=== PATIENT | male | born 1985 ===

== ENCOUNTER 2016-09-07 20:59 | Emergency (ER) | payer SELFPAY ==
[2016-09-07 21:08] VITALS: BP 112/59; PULSE 70; RESP 16; TEMP 102; O2SAT 99
--- NOTE | 2016-09-07 22:19 | ED PDOC ---
HPI: General Adult Time Seen by Provider: 09/07/16 21:11 Chief Complaint (Nursing): Cough, Cold, Congestion Chief Complaint (Provider): uri sx History Per: Patient Additional Complaint(s): pt c/o fever, cough, congestion, st x 2 days. no cp, sob, abd pain, n/v/d. no recent travel or sick contacts. Past Medical History Reviewed: Historical Data, Nursing Documentation, Vital Signs Vital Signs: Last Vital Signs Temp 102.0 F H 09/07/16 21:05 Pulse 70 09/07/16 21:05 Resp 16 09/07/16 21:05 BP 112/59 L 09/07/16 21:05 Pulse Ox 99 09/07/16 21:05 - Medical History PMH: No Chronic Diseases - Family History Family History: States: No Known Family Hx - Social History Current smoker - smoking cessation education provided: Yes Alcohol: None Drugs: Denies - Immunization History Hx Tetanus Toxoid Vaccination: Yes (>10years ago) - Home Medications Home Medications: Ambulatory Orders Medication Instructions Recorded D-Methorphan/PE/Acetaminophen 1 tab PO PRN PRN 09/07/16 [Vicks Dayquil Liquicaps] - Allergies Allergies/Adverse Reactions: Allergies Allergy/AdvReac Type Severity Reaction Status Date / Time No Known Allergies Allergy Verified 10/22/15 22:20 Review of Systems ROS Statement: Except As Marked, All Systems Reviewed And Found Negative Constitutional: Positive for: Fever, Chills ENT: Positive for: Nose Congestion, Throat Pain Respiratory: Positive for: Cough Physical Exam - Reviewed Nursing Documentation Reviewed: Yes Vital Signs Reviewed: Yes - Physical Exam Appears: Positive for: Non-toxic, Uncomfortable Skin: Positive for: Normal Color, Warm, DRY ENT: Positive for: Normal ENT Inspection Neck: Positive for: Normal, Painless ROM Cardiovascular/Chest: Positive for: Regular Rate, Rhythm Respiratory: Positive for: CNT, Normal Breath Sounds Gastrointestinal/Abdominal: Positive for: Normal Exam, Bowel Sounds, Soft. Negative for: Tenderness Neurologic/Psych: Positive for: Alert, Oriented - ECG O2 Sat by Pulse Oximetry: 99 Disposition - Clinical Impression Clinical Impression: URI (upper respiratory infection) - Patient ED Disposition Is Patient to be Admitted: No - Disposition Referrals: [facility] [Outside] Disposition: Routine/Home Disposition Time: 22:18 Condition: GOOD Instructions: Upper Respiratory Infection (ED)
== END 2016-09-07 22:33 | disposition home or self-care (01) ==
LOC: H.ER 20:59
DX: J06.9 Acute upper respiratory infection, unspecified (principal)

== ENCOUNTER 2017-03-07 02:32 | Emergency (ER) | payer MEDICAID ==
[2017-03-07 02:40] VITALS: BP 131/72; PULSE 54; RESP 16; TEMP 98.3; O2SAT 100
--- NOTE | 2017-03-07 02:55 | ED PDOC ---
HPI: Dental Pain/Injury Chief Complaint (Nursing): Dental Pain History Per: Patient History/Exam Limitations: no limitations Onset/Duration Of Symptoms: Days (1 month) Current Symptoms Are (Timing): Still Present Severity: Moderate Pain Scale Rating Of: 6 Dental: 1 - caries and gingivitis Quality: Dull, Aching Additional History Per: Patient Additional Complaint(s): CC: dental caries 31 y/o M, PPD smoker presenting with dental caries and pain x 1 month. States pain was gradual onset, located in tooth #32, third molar on the lower right. Pain now starting to radiate to the right ear. No fevers, n/v. Patient has not seen a dentist due to lack of insurance. PMD: none Past Medical History Vital Signs: Last Vital Signs Temp 98.3 F 03/07/17 02:38 Pulse 54 L 03/07/17 02:38 Resp 16 03/07/17 02:38 BP 131/72 03/07/17 02:38 Pulse Ox 100 03/07/17 02:38 - Family History Family History: States: Unknown Family Hx - Immunization History Hx Tetanus Toxoid Vaccination: Yes (>10years ago) - Home Medications Home Medications: Ambulatory Orders Medication Instructions Recorded D-Methorphan/PE/Acetaminophen 1 tab PO PRN PRN 09/07/16 [Vicks Dayquil Liquicaps] Amoxicillin/Clavulanate [Augmentin 1 tab PO BID #14 tab 03/07/17 875 MG-125 MG] - Allergies Allergies/Adverse Reactions: Allergies Allergy/AdvReac Type Severity Reaction Status Date / Time No Known Allergies Allergy Verified 10/22/15 22:20 Physical Exam - Physical Exam Appears: Positive for: Non-toxic, No Acute Distress Head Exam: Positive for: ATRAUMATIC Skin: Positive for: Warm, Dry ENT: Positive for: Other (gingivitis and erythema around tooth #32; no active drainage observed; fair oral hygeine). Negative for: Nasal Congestion, Pharyngeal Erythema, Tonsillar Exudate, Tonsillar Swelling Neck: Positive for: Normal, Painless ROM Cardiovascular/Chest: Positive for: Regular Rate, Rhythm Respiratory: Positive for: Normal Breath Sounds - ECG O2 Sat by Pulse Oximetry: 100 Disposition - Clinical Impression Clinical Impression: Dental infection - Patient ED Disposition Is Patient to be Admitted: No - Disposition Referrals: Nabor Galvan DDS [Medical Doctor] - Disposition: Routine/Home Disposition Time: 03:14 Condition: GOOD Additional Instructions: follow up with dentist in 1-2 days take antibiotics as directed Instructions: Gingivostomatitis (ED) Forms: [employer] (Mauritian) Print Language: ISRAELI
[2017-03-07] MEDS ORDERED: Amoxicillin-Clav 875-125 mg Tab PO STA (03:20)
[2017-03-07] MEDS ORDERED: Amoxicillin-Clav 875-125 mg Tab PO ONE (03:21)
== END 2017-03-07 03:24 | disposition home or self-care (01) ==
LOC: H.ER 02:32
DX: K02.9 Dental caries, unspecified (principal)

== ENCOUNTER 2017-06-20 14:12 | Emergency (ER) | payer MEDICAID ==
[2017-06-20 14:29] VITALS: BP 102/61; PULSE 68; RESP 16; TEMP 97.5; O2SAT 99
[2017-06-20] MEDS ORDERED: Sodium Chloride 0.9% 1,000 ML IV STA ×2 (15:00→15:20)
[2017-06-20 15:41] LABS: BASO % 0.4 % (0.0-2.0); EOS # 0.2 K/uL (0.0-0.7); EOS % 2.6 % (0.0-4.0); HEMOGLOBIN 14.1 g/dL (12.0-18.0); LYMPH # 0.7 K/uL (1.0-4.3); LYMPH % 8.9 % (20.0-40.0); MEAN PLATELET VOLUME 9.9 fl (7.2-11.7); MONO # 0.4 K/uL (0.0-0.8); MONO % 5.6 % (0.0-10.0); NEUT # 6.6 K/uL (1.8-7.0); NEUT % 82.5 % (50.0-75.0); NRBC % 0.1 % (0.0-0.0); PLATELET COUNT 145 K/uL (130-400); RBC 4.26 Mil/uL (4.40-5.90); RED CELL DISTRIBUTION WIDTH 12.6 % (11.5-14.5); WHITE BLOOD COUNT 8.1 K/uL (4.8-10.8)
[2017-06-20 16:21] LABS: ALB/GLOB RATIO 1.3 (1.0-2.1); ALBUMIN 4.4 g/dL (3.5-5.0); ALT/SGPT 39 U/L (21-72); AST/SGOT 38 U/L (17-59); BLOOD UREA NITROGEN 14 mg/dl (9-20); CALCIUM 9.8 mg/dL (8.4-10.2); GFR AFRICAN-AMERICAN > 60; GFR NON-AFRICAN AMERICAN > 60
[2017-06-20 16:21] LABS: EOSINOPHIL 2 % (0-7); LYMPHOCYTE 10 % (20-50); MONOCYTE 5 % (0-10); NEUTROPHIL 81 % (42-75); PLATELET ESTIMATE NORMAL (NORMAL); REACTIVE LYMPHOCYTES 2 % (0-0); TOTAL CELLS COUNTED 100
--- NOTE | 2017-06-20 17:51 | ED PDOC ---
HPI: Abdomen Time Seen by Provider: 06/20/17 14:58 Chief Complaint (Nursing): GI Problem Chief Complaint (Provider): Lower abdominal pain, nausea History Per: Patient History/Exam Limitations: no limitations Onset/Duration Of Symptoms: Days (2) Outside of [place] travel?: No Current Symptoms Are (Timing): Still Present Location Of Pain/Discomfort: Suprapubic Quality Of Discomfort: Dull Associated Symptoms: Nausea, Vomiting, Diarrhea, Loss Of Appetite. denies: Fever, Chills, Constipation, Urinary Symptoms Exacerbating Factors: None Additional Complaint(s): No fever/chills. Past Medical History Reviewed: Historical Data, Nursing Documentation, Vital Signs Vital Signs: Last Vital Signs Temp 97.5 F L 06/20/17 14:21 Pulse 68 06/20/17 14:21 Resp 16 06/20/17 14:21 BP 102/61 06/20/17 14:21 Pulse Ox 99 06/20/17 14:21 - Medical History PMH: No Chronic Diseases - Surgical History Surgical History: No Surg Hx - Family History Family History: States: Unknown Family Hx - Living Arrangements Living Arrangements: With Family - Social History Current smoker - smoking cessation education provided: Yes Drugs: Cannabis (Daily ) - Immunization History Hx Tetanus Toxoid Vaccination: Yes (>10years ago) - Home Medications Home Medications: Ambulatory Orders Medication Instructions Recorded D-Methorphan/PE/Acetaminophen 1 tab PO PRN PRN 09/07/16 [Vicks Dayquil Liquicaps] Amoxicillin/Clavulanate [Augmentin 1 tab PO BID #14 tab 03/07/17 875 MG-125 MG] Ondansetron ODT [Zofran ODT] 4 mg PO QID #20 odt 06/20/17 - Allergies Allergies/Adverse Reactions: Allergies Allergy/AdvReac Type Severity Reaction Status Date / Time No Known Allergies Allergy Verified 06/20/17 14:21 Review of Systems ROS Statement: Except As Marked, All Systems Reviewed And Found Negative Constitutional: Negative for: Fever, Chills Gastrointestinal: Positive for: Nausea, Vomiting, Abdominal Pain Physical Exam - Reviewed Nursing Documentation Reviewed: Yes Vital Signs Reviewed: Yes - Physical Exam Appears: Positive for: Well, Non-toxic, No Acute Distress Head Exam: Positive for: ATRAUMATIC, NORMAL INSPECTION, NORMOCEPHALIC Skin: Positive for: Normal Color, Warm, DRY Eye Exam: Positive for: Normal appearance ENT: Positive for: Normal ENT Inspection Neck: Positive for: Normal, Painless ROM Cardiovascular/Chest: Positive for: Regular Rate, Rhythm Respiratory: Positive for: Normal Breath Sounds. Negative for: Accessory Muscle Use, Respiratory Distress Gastrointestinal/Abdominal: Positive for: Normal Exam, Bowel Sounds, Soft, Tenderness (Mild diffuse tenderness ) Back: Positive for: Normal Inspection Extremity: Positive for: Normal ROM Neurologic/Psych: Positive for: Alert, Oriented - Laboratory Results Result Diagrams: 06/20/17 15:21 06/20/17 15:55 - ECG O2 Sat by Pulse Oximetry: 99 Medical Decision Making Medical Decision Making: Labs normal. Disposition - Clinical Impression Clinical Impression: Viral gastroenteritis - Patient ED Disposition Is Patient to be Admitted: No Counseled Patient/Family Regarding: Diagnosis, Need For Followup, Rx Given - Disposition Disposition: Routine/Home Disposition Time: 17:51 Condition: GOOD Prescriptions: Ondansetron ODT [Zofran ODT] 4 mg PO QID #20 odt Instructions: Gastroenteritis (ED)
== END 2017-06-20 18:12 | disposition home or self-care (01) ==
LOC: H.ER 14:12
DX: A08.4 Viral intestinal infection, unspecified (principal)
CPT/HCPCS: 80053; 85025; 96361; 96374; 96375; 99283; J1885; J2405; J7040